=== PATIENT | female | born 1980 | race African-American/Black ===

== ENCOUNTER 2017-07-30 00:48 | Emergency (ER) | payer MEDICAID, OTHER ==
[~2017-07-30] VITALS: Ht 170.2 cm; Wt 77.0 kg
[2017-07-30 04:40] LABS: CLARITY URINE CLOUDY (CLEAR); COLOR URINE YELLOW (YELLOW); KETONES URINE NEGATIVE (NEGATIVE); LEUKOCYTE ESTERASE URINE TRACE (NEGATIVE); NITRITE URINE NEGATIVE (NEGATIVE); OCCULT BLOOD URINE NEGATIVE (NEGATIVE); PROTEIN URINE NEGATIVE (NEGATIVE); SPECIFIC GRAVITY URINE 1.023 (1.005-1.030); UROBILINOGEN URINE 0.2 E.U./dL (0.2-1.0)
[2017-07-30 05:03] LABS: *BARBITURATES SCREEN URINE NEGATIVE (NEGATIVE); *BENZODIAZEPINES SCREEN URINE NEGATIVE (NEGATIVE); *COCAINE SCREEN URINE NEGATIVE (NEGATIVE); CANNABINOID URINE SCREEN NEGATIVE (NEGATIVE); METHADONE URINE SCREEN NEGATIVE (NEGATIVE); OPIATES URINE SCREEN NEGATIVE (NEGATIVE); PHENCYCLIDINE URINE SCREEN NEGATIVE (NEGATIVE)
[2017-07-30 06:23] LABS: *AMPHETAMINES SCREEN URINE PRESUMTIVE POSITIVE (NEGATIVE)
[2017-07-30 11:32] VITALS: BP 129/79
== END 2017-07-30 12:02 | disposition home or self-care (01) ==
LOC: ER 00:48
DX: N76.0 Acute vaginitis (principal); F15.10 Other stimulant abuse, uncomplicated
CPT/HCPCS: 80305; 81001; 81025; 99284